=== PATIENT | male | born 1985 | race Caucasian/White ===

== ENCOUNTER 2016-10-01 11:55 | Day surgery (SDC) | payer OTHER ==
[~2016-10-01] VITALS: Ht 182.9 cm; Wt 80.7 kg
[~2016-10-01 11:55] MED LIST: ENDOCET 5-3251 EACH PO; LORCET PLUS 7.1 EACH PO; MOBIC15 MG PO; NEURONTIN400 MG PO
== END 2016-10-01 13:30 | disposition home or self-care (01) ==
LOC: PAIN 11:55 → SDC 12:30 → PAIN 13:30
PROC: 3E0S3BZ Introduction of Anesthetic Agent into Epidural Space, Percutaneous Approach (ICD-10-PCS; principal; 2016-10-01)
DX: M54.17 Radiculopathy, lumbosacral region (principal); M47.896 Other spondylosis, lumbar region; M54.42 Lumbago with sciatica, left side; M54.41 Lumbago with sciatica, right side; F17.200 Nicotine dependence, unspecified, uncomplicated
CPT/HCPCS: J1100; J2250; J3010

== ENCOUNTER 2017-03-04 12:32 | Day surgery (SDC) | payer OTHER ==
[~2017-03-04] VITALS: Ht 182.9 cm; Wt 74.8 kg
[~2017-03-04 12:32] MED LIST changes: +LORTAB 10-3251 EACH PO; +NEURONTIN600 MG PO; +ZANAFLEX2 M1 PO
== END 2017-03-04 14:25 | disposition home or self-care (01) ==
LOC: PAIN 12:32 → SDC 13:00 → PAIN 14:25
DX: M51.16 Intervertebral disc disorders with radiculopathy, lumbar region (principal); M54.41 Lumbago with sciatica, right side; G89.29 Other chronic pain; Z79.891 Long term (current) use of opiate analgesic
CPT/HCPCS: J1030; J2250; J3010; S0020

== ENCOUNTER 2017-03-16 09:28 | Day surgery (SDC) | payer OTHER ==
[~2017-03-16] VITALS: Ht 182.9 cm; Wt 75.5 kg
== END 2017-03-16 11:33 | disposition home or self-care (01) ==
LOC: PAIN 09:28
DX: M47.816 Spondylosis without myelopathy or radiculopathy, lumbar region (principal); M54.5 Low back pain; F41.9 Anxiety disorder, unspecified; Z88.0 Allergy status to penicillin
CPT/HCPCS: J1030; J2250; J3010; S0020

== ENCOUNTER 2017-06-24 12:04 | Day surgery (SDC) | payer OTHER ==
[~2017-06-24] VITALS: Ht 182.9 cm; Wt 77.6 kg
== END 2017-06-24 14:00 | disposition home or self-care (01) ==
LOC: PAIN 12:04
DX: M47.26 Other spondylosis with radiculopathy, lumbar region (principal); M51.16 Intervertebral disc disorders with radiculopathy, lumbar region; G89.29 Other chronic pain; Z79.891 Long term (current) use of opiate analgesic; F17.210 Nicotine dependence, cigarettes, uncomplicated; Z88.0 Allergy status to penicillin
CPT/HCPCS: J1030; J1885; J2250; J3010; S0020

== ENCOUNTER 2017-07-01 12:12 | Day surgery (SDC) | payer OTHER ==
[~2017-07-01] VITALS: Ht 182.9 cm; Wt 77.6 kg
== END 2017-07-01 13:30 | disposition home or self-care (01) ==
LOC: PAIN 12:12 → SDC 12:30 → PAIN 13:30
DX: M47.26 Other spondylosis with radiculopathy, lumbar region (principal); R20.0 Anesthesia of skin; G89.29 Other chronic pain; M51.16 Intervertebral disc disorders with radiculopathy, lumbar region; Z88.0 Allergy status to penicillin; Z91.040 Latex allergy status
CPT/HCPCS: J1030; J1885; J2250; J3010; S0020